=== PATIENT | male | born 1990 | race Hispanic/Latino ===

== ENCOUNTER 2019-06-08 06:33 | Day surgery (SDC) | payer BC ==
[2019-06-07 15:56] VITALS: BP 146/69
[2019-06-07 16:08] LABS: INR 0.96 (0.85-1.15); PARTIAL THROMBOPLASTIN TIME 26.8 SEC (26.3-35.5); PROTHROMBIN TIME 10.1 SEC (9.6-11.6)
[2019-06-07 16:28] LABS: POTASSIUM 3.6 mmol/L (3.5-5.1)
[2019-06-08] VITALS (15 sets, daily range): BP systolic 100–120; BP diastolic 57–76
[~2019-06-08] VITALS: Ht 175.3 cm; Wt 94.4 kg
[2019-06-08] MEDS: CEFAZOLIN SODIUM 1 GM VIAL IVP SCH ×2 (06:00→07:45)
[2019-06-08] MEDS ORDERED: FENTANYL CITRATE PF 50 MCG/1 ML 2ML VIAL ONE (06:56)
[2019-06-08] MEDS ORDERED: PROPOFOL 10 MG/ML 20ML VIAL IV ONE (06:56)
[2019-06-08] MEDS ORDERED: ROCURONIUM 10MG/1ML SYR 10 MG/ML ML ONE (06:56)
[2019-06-08] MEDS ORDERED: SUCCINYLCHOLINE 200MG/10ML SYR ONE (06:56)
[2019-06-08] MEDS ORDERED: LIDOCAINE HCL MPF 1% 5ML VIAL ONE (06:56)
[2019-06-08] MEDS: LACTATED RINGERS 1000ML 1,000 ML IV SCH ×2 (07:20→09:12)
[2019-06-08] MEDS ORDERED: ROPIVACAINE 0.5% 5MG/ML 30ML IJ ONE (07:33)
[2019-06-08] MEDS ORDERED: DEXAMETHASONE SOD PHOSPHATE 4 MG/ML 1ML VIAL ONE (07:34)
[2019-06-08] MEDS ORDERED: GLYCOPYRROLATE 1 MG/5 ML SYRINGE ONE (08:51)
[2019-06-08] MEDS ORDERED: KETOROLAC TROMETHAMINE 30MG/ML ONE (08:51)
[2019-06-08] MEDS ORDERED: ONDANSETRON HCL 4 MG/2 ML VIAL ONE (08:51)
[2019-06-08] MEDS ORDERED: NEOSTIGMINE 5MG/5ML SYR IV ONE (08:51)
--- NOTE | 2019-06-08 10:00 | NUR ---
PATIENT ARRIVED PATIENT BROUGHT FROM PACU VIA BED BY VALARIE REARDON. PATIENT AAOX3 RESPIRATIONS UNLABORED, VITAL SIGNS STABLE. SLING TO LEFT ARM AND DRESSING TO LEFT SHOULDER IS DRY AND INTACT. PATIENT DENIES ANY PAIN AT THIS TIME. ICE PACKS IN PLACE TO LEFT SHOULDER. SIDERAILS UPX2, BED IN LOWEST POSITION AND CALL [facility] IN REACH.
--- NOTE | 2019-06-08 10:51 | NUR ---
DISCAHRGE INSTRUCTIONS PROVIDE TO PATIENT AND PATIENT'S SPOUSE (BRENDON). HANDOUT PROVIDED AND EXPLAINED REGARDING OUTPATIENT SHOULDER ARTHROSCOPY DISCHARGE INSTRUCTIONS. BOTH PATIENT AND SPOUSE VERBALIZED UNDERSTANDING. FOLLOW UP APPOINTMENT PROVIDED AND ALL QUESTIONS/CONCERNS ADDRESSED.
--- NOTE | 2019-06-08 11:05 | NUR ---
PATIENT DISCHARGED PATIENT DISCHARGED FROM FACILITY VIA WHEELCHAIR AND TAKE TO PRIVATE VEHICLE BY BETTY GREGORIO. PATIENT ABLE TO GET INTO PRIVATE VEHICLE UNASSISTED, DRIVEN BY SPOUSE.
== END 2019-06-08 11:05 | disposition home or self-care (01) ==
LOC: DAH 06:33
PROVIDERS: ATTEND Orthopaedic Surgery
DX: S43.492A Other sprain of left shoulder joint, initial encounter (principal); X58.XXXA Exposure to other specified factors, initial encounter; Y93.89 Activity, other specified; Y92.89 Other specified places as the place of occurrence of the external cause; Y99.8 Other external cause status; M75.52 Bursitis of left shoulder; M25.512 Pain in left shoulder; F17.210 Nicotine dependence, cigarettes, uncomplicated; Z72.89 Other problems related to lifestyle
CPT/HCPCS: 29806; 29826; 36415; 80048; 85610; 85730; A4215; A4221; A4222; A4223; A4248; A4452; A4600; A4649 ×8; A4663; A4930; A5120; A6223; A6260; C1713; J0330; J0690; J1100; J1885; J2405; J2704; J2710; J2795; J3010; J3490 ×2; J7120 ×2